=== PATIENT | female | born 1990 | race Caucasian/White ===

== ENCOUNTER 2016-08-21 02:32 | Emergency (ER) | payer OTHER ==
--- NOTE | 2016-08-21 04:02 | EMERGENCY ROOM VISIT NOTE ---
History Report prepared by Esther: Mickey Silver Under the Supervision of: Dr. Ludin Manrique D.O. First contact with patient: 03:59 Stated Complaint: ETOH History of Present Illness The patient is a 26 year old female who presents to the Emergency Room with alcohol intoxication. Per the police report, the patient was found urinating in the street. It notes the patient fell and scraped her knees. The police report that the patient had slurred speech and was confused as to what day of the week it was. The patient denies hitting her head and having medical problems. The patient states that she is intoxicated after drink 4-5 IPA beers. HPI & ROS limited secondary to alcohol intoxication. Source of History: EMS History Limited By: intoxication Review of Systems HPI & ROS limited secondary to alcohol intoxication. Family History Patient reports no known family medical history. Social History Alcohol Use: occasionally Marital Status: single Current/Historical Medications No Active Prescriptions or Reported Meds Allergies Coded Allergies: No Known Allergies (Unverified , 08/21/16) Physical Exam Physical Exam GENERAL: Awake, alert, well-appearing, in no distress. Mild slurred speech. HENT: Normocephalic, atraumatic. Oropharynx unremarkable. No signs of trauma on the head. EYES: Normal conjunctiva. Sclera non-icteric. NECK: Supple. No nuchal rigidity. FROM. No JVD. RESPIRATORY: Clear to auscultation. CARDIAC: Regular rate, normal rhythm. Extremities warm and well perfused. Pulses equal. ABDOMEN: Soft, non-distended. No tenderness to palpation. No rebound or guarding. No masses. RECTAL: Deferred. MUSCULOSKELETAL: Chest examination reveals no tenderness. The back is symmetrical on inspection without obvious abnormality. There is no CVA tenderness to palpation. No joint edema. LOWER EXTREMITIES: Calves are equal size bilaterally and non-tender. No edema. No discoloration. Minor abrasions to the knees. NEURO: Normal sensorium. No sensory or motor deficits noted. SKIN: No rash or jaundice noted. Medical Decision & Procedures Laboratory Results 08/21/16 03:10 08/21/16 03:10 Test 08/21/16 03:10 Red Blood Count 4.37 M/uL (4.2-5.4) Mean Corpuscular Volume 85.6 fL (80-100) Mean Corpuscular Hemoglobin 28.1 pg (25-34) Mean Corpuscular Hemoglobin Concent 32.9 g/dl (32-36) RDW Standard Deviation 41.7 fL (36.4-46.3) RDW Coefficient of Variation 13.2 % (11.5-14.5) Mean Platelet Volume 8.9 fL (7.4-10.4) Anion Gap 10.0 mmol/L (3-11) Estimated GFR () 141.0 Estimated GFR (Non- 121.7 BUN/Creatinine Ratio 13.8 (10-20) Calcium Level 8.0 mg/dl (8.5-10.1) Total Bilirubin 0.2 mg/dl (0.2-1) Aspartate Amino Transf (AST/SGOT) 12 U/L (15-37) Alanine Aminotransferase (ALT/SGPT) 16 U/L (12-78) Alkaline Phosphatase 64 U/L (45-117) Total Protein 7.9 gm/dl (6.4-8.2) Albumin 4.2 gm/dl (3.4-5.0) Globulin 3.7 gm/dl (2.5-4.0) Albumin/Globulin Ratio 1.1 (0.9-2) Ethyl Alcohol mg/dL 266.0 mg/dl (0-3) Laboratory results reviewed by me ED Course 0244: The patient was evaluated in room B04B. A complete history and physical exam was performed. 0542: I reevaluated the patient. She is resting and in no distress. Discussed results and discharge instructions: she verbalized understanding and agreement. The patient is ready for discharge. Medical Decision Alcohol intoxication, dehydration, metabolic derangement. Medication Reconciliation: I attest that I have personally reviewed the patient' s current medication list. Patient on reexamination at 5:50 AM is resting in no distress GCS of 15 nonfocal alert and oriented 3 with no signs of trauma. I have discussed evaluation with the patient now that she is more coherent. She will get a ride home with a sober family member Impression Primary Impression: Alcohol use with intoxication Scribe Attestation The scribe's documentation has been prepared under my direction and personally reviewed by me in its entirety. I confirm that the note above accurately reflects all work, treatment, procedures, and medical decision making performed by me. Departure Information Dispostion Home / Self-Care Prescriptions No Active Prescriptions or Reported Meds Patient Instructions Alcohol Drug Use Suspect , [facility]: [employer] Students and Alcohol Related Visits , [facility]
[2016-08-21 05:21] LABS: ALB/GLOB RATIO 1.1 (0.9-2); ALKALINE PHOSPHATASE 64 U/L (45-117); ALT/SGPT 16 U/L (12-78); AST/SGOT 12 U/L (15-37); BLOOD UREA NITROGEN 9 mg/dl (7-18); BUN/CREATININE RATIO 13.8 (10-20); CARBON DIOXIDE 23 mmol/L (21-32); CHLORIDE 114 mmol/L (98-107); CREATININE 0.65 mg/dl (0.60-1.20); GLUCOSE 107 mg/dl (70-99); POTASSIUM 3.4 mmol/L (3.5-5.1); SODIUM 147 mmol/L (136-145)
[2016-08-21 05:24] LABS: HEMATOCRIT 37.4 % (37-47); MEAN CELL VOLUME 85.6 fL (80-100); MEAN CORPUSCULAR HEMOGLOBIN 28.1 pg (25-34); MEAN CORPUSCULAR HGB CONC 32.9 g/dl (32-36); MEAN PLATELET VOLUME 8.9 fL (7.4-10.4); PLATELET COUNT 276 K/uL (130-400); RED BLOOD COUNT 4.37 M/uL (4.2-5.4); WHITE BLOOD COUNT 7.44 K/uL (4.8-10.8)
[2016-08-21 06:49] VITALS: BP 107/69; PULSE 89; O2SAT 98
== END 2016-08-21 06:49 | disposition home or self-care (01) ==
LOC: C.EDB 02:32
DX: F10.129 Alcohol abuse with intoxication, unspecified (principal)